=== PATIENT | female | born 1995 | race Caucasian/White ===

== ENCOUNTER 2018-11-04 11:56 | Inpatient (IN) | payer MEDICAID ==
[~2018-11-04 11:56] MED LIST: Bupivacaine 0.25% 10 ML SDV ONE
[2018-11-04] MEDS ORDERED: Calcium Carbonate 500 MG Tab.Chew PO PRN (12:46)
[2018-11-04] MEDS ORDERED: Sodium Chloride 0.9% 10 ML Syringe FLUSH PRN (12:46)
[2018-11-04] MEDS ORDERED: Ondansetron 4 MG/2 ML SDV IVPUSH PRN (12:46)
[2018-11-04] MEDS ORDERED: Nalbuphine 10 MG/1 ML Vial IVPUSH PRN (12:46)
[2018-11-04] MEDS ORDERED: Oxytocin/Lactated Ringers 10 UNIT/1,000 ML BAG IV SCH ×2 (13:00)
--- NOTE | 2018-11-04 13:01 | PCM.PREANE ---
Preanesthetic Assessment - Procedure Proposed Procedure: scott - Anesthesia/Transfusion/Family Hx Anesthesia History: No Prior Anesthesia Family History of Anesthesia Reaction: No Transfusion History: No Prior Transfusion(s) - Review of Systems General: No Symptoms Pulmonary: Shortness of Breath Cardiovascular: No Symptoms, Chest Pain (feels like food is there at night) Gastrointestinal: No Symptoms Neurological: No Symptoms Other: Reports: None - Physical Assessment Vital Signs: 158/118 77 20 Height: 5 ft 8 in Weight: 113.398 kg ASA Class: 2 Mental Status: Alert & Oriented x3 Airway Class: Mallampati = 1 Dentition: Reports: Normal Dentition Thyro-Mental Finger Breadths: 3 Mouth Opening Finger Breadths: 3 ROM/Head Extension: Full Lungs: Clear to Auscultation, Normal Respiratory Effort Cardiovascular: Regular Rate, Regular Rhythm - Allergies Allergies/Adverse Reactions: Allergies Allergy/AdvReac Type Severity Reaction Status Date / Time No Known Allergies Allergy Verified 11/04/18 12:08 - Blood Blood Available: No - Acknowledgements Anesthesia Type Planned: Epidural Pt an Appropriate Candidate for the Planned Anesthesia: Yes Alternatives and Risks of Anesthesia Discussed w Pt/Guardian: Yes Pt/Guardian Understands and Agrees with Anesthesia Plan: Yes PreAnesthesia Questionnaire Cardiovascular History: Reports: None Respiratory History: Reports: None Gastrointestinal History: Reports: GERD (yucky feeling in chest) : 1 (39 2) Para: 0 Neurological History: Reports: None Oncologic (Cancer) History: Reports: None - SUBSTANCE USE Smoking Status *Q: Never Smoker Tobacco Use Within Last Twelve Months: No Second Hand Smoke Exposure: No Days Per Week of Alcohol Use: 0 Recreational Drug Use History: No - HOME MEDS Home Medications: Home Meds Ferrous Sulfate [Iron] 325 mg PO DAILY 11/04/18 [History] [id number]/Iron Fumarate/FA/DSS [ 19 Tablet] 1 each PO DAILY 11/04/18 [ History] - CURRENT (IN HOUSE) MEDS Current Meds: Current Medications Calcium Carbonate/Glycine (Tums) 1,000 mg PO Q2H PRN PRN Reason: Indigestion Lactated Ringer's (Ringers, Lactated) 1,000 mls @ 100 mls/hr IV ASDIRECTED JAMIE Oxytocin/Lactated Ringer's (Pitocin In Lr 10 Units/1,000 Ml) 10 unit in 1,000 mls @ 12 mls/hr IV TITRATE JAMIE; Protocol Oxytocin/Lactated Ringer's (Pitocin In Lr 10 Units/1,000 Ml) 10 unit in 1,000 mls @ 500 mls/hr IV .CONTINUOUS JAMIE Nalbuphine HCl (Nubain) 10 mg IVPUSH Q2H PRN PRN Reason: Pain Ondansetron HCl (Zofran) 4 mg IVPUSH Q4H PRN PRN Reason: Nausea/Vomiting Sodium Chloride (Saline Flush) 10 ml FLUSH ASDIRECTED PRN PRN Reason: Keep Vein Open
[2018-11-04] MEDS: Labetalol 100 MG Tab PO SCH ×2 (13:18→17:10)
[2018-11-04] MEDS: Lactated Ringers 1,000 ML IV SCH ×2 (13:28→17:04)
[2018-11-04] MEDS ORDERED: fentaNYL 100 MCG/2 ML SDV EPIDUR PRN (15:31)
[2018-11-04] MEDS ORDERED: Bupivacaine/fentaNYL/NS 100 ML Bag EPIDUR PRN (15:31)
[2018-11-04] MEDS ORDERED: diphenhydrAMINE 50 MG/ML SDV IVPUSH PRN (15:31)
[2018-11-04] MEDS ORDERED: ePHEDrine 50 MG/ML SDV IVPUSH PRN (15:31)
[2018-11-04] MEDS ORDERED: Labetalol 100 MG Tab PO ONE (17:14)
--- NOTE | 2018-11-04 20:26 | PCM.LDHP ---
L&D History of Present Illness - General Date of Service: 11/04/18 Admit Problem/Dx: Patient Status Order with Admit Dx/Problem 11/04/18 12:10 Patient Status [ADT] Routine Admission Diagnosis/Problem Admission Diagnosis/Problem 11/04/18 20:21 Radha is a 23-year-old 1 para 0 female admitted at 39-2/7 week IUP with an WENDI of 11/09/2018 her preeclampsia severe features. Source of Information: Patient History Limitations: Reports: No Limitations - History of Present Illness Introduction:: Radha is a 23-year-old 1 para 0 female admitted at 39-2/7 week IUP with an WENDI of 11/09/2018 her preeclampsia severe features.She was seen in clinic today and blood pressure at that time was 179/110. On multiple occasions is been repeated and has stayed in the range of 95-110 diastolic and 150-170 systolic. Laboratory testing includes increased level of uric acid, protein in her urine. She complains of a headache upon evaluation in clinic and has had significant swelling. She had a weight gain of 9.8 pounds over the last 4 days. He is admitted for induction of labor and management of her elevated blood pressures and her preeclampsia with severe features. 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 Her WENDI is set by an early ultrasound done at an outside clinic. She transferred her care to our clinic at approximately 37 weeks gestational age having received care in [place] prior to that time. Significant portions of her medical record were not transferred at the time of that initiation of care. Patient had a starting weight of 229 pounds and increased up to 249 pounds by the end of the for 29 pound weight gain. 9.8 of those pounds were however in the last 4 days of the . She reports good activity. Reports that her course has been relatively unremarkable until the present time. Now reports that she is at headache. Has had blurry vision and been unable focus well. She denies any right upper quadrant abdominal pain.Blood pressures in clinic were elevated and patient was sent to the labor and delivery unit for induction of labor for diagnosis of 39 week , preeclampsia severe features. The patient plans to breast-feed Laboratory testing and shows blood group B positive. Negative antibody screen. RPR nonreactive. Group B strep screen negative. Allergies none. Medications: 1. vitamins 1 daily 2. Ferrous sulfate 325 mg by mouth daily Past medical history: Unremarkable. Past surgical history: Unremarkable Family history: Mother is alive and well as is her father. She has many half- brothers and many half-sisters. One half sister with Down syndrome. Maternal grandmother is alive and well. Maternal grandfather is secondary to a motor vehicle accident. Paternal grandmother and paternal grandfather are both alive and well. There is no family history of cancer, bleeding or blood clotting disorders, anesthesia related issues or -related issues. Review of systems: Patient reports increased edema in her lower extremities, hands and her face. She reports headache present on the day of evaluation. She also reports vision changes in the form of blurriness of vision and inability to focus. Baby is reported to be very active. She denies any contractions. Skin: Negative Lungs: No infectious symptoms or shortness of breath Cardiovascular: No chest pain or exercise intolerance Breasts: No lumps, changes in size, pain, dimpling, discharge or axillary or supraclavicular concerns. GI: Negative : As above in history of present illness. Musculoskeletal: Negative Neurological: Negative In general the patient is edematous, overweight but pleasant female of stated age in no acute distress. Blood pressures 179/110. Weight is 249.8 with weight 4 days ago 240 pounds. heart rate is 144. Pre-gravid weight was 229 pounds. Height is 5 feet 8 inches. Prepregnancy body mass index is 28.1. Skin is warm dry without lesions. Patient is very edematous lower extremities and hands. This to the point where she has trouble closing the fingers on her hands into a fist. HEENT, neck and back within normal limits. Lungs are clear with good breath sounds in all lung maria. Cardiovascular exam shows regular and rhythm without murmurs. Breast exam is deferred Abdomen is gravid with fundal height in clinic at approximately 41 cm. Baby in vertex presentation. Genital exam per digital evaluation shows cervix to be 3 cm, 80% effaced, soft, posterior, -3 station. Extremities are with significant 1+ pitting edema in lower extremities and significant edema in her hands bilaterally. Neurological exam is normal. Specifically her deep tendon reflexes are less than 1/4 in bilateral lower extremities. Pain Score: 10 - Related Data Allergies/Adverse Reactions: Allergies Allergy/AdvReac Type Severity Reaction Status Date / Time No Known Allergies Allergy Verified 11/04/18 12:08 Home Medications: Home Meds Calcium Carbonate [Calcium] 500 mg PO DAILY 11/04/18 [History] Mae Weed/Linoleic/Gamoleni [Evening Weed 1,000 mg Sftg] 1,000 mg PO DAILY 11/04/18 [History] Ferrous Sulfate [Iron] 325 mg PO DAILY 11/04/18 [History] GQJ644/Iron Fumarate/FA/DSS [ 19 Tablet] 1 each PO DAILY 11/04/18 [ History] Past Medical History Cardiovascular History: Reports: None Respiratory History: Reports: None Gastrointestinal History: Reports: GERD [employer]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: Neurological History: Reports: None Endocrine/Metabolic History: Reports: Obesity/BMI 30+ Oncologic (Cancer) History: Reports: None Social & Family History - Family History Family Medical History: Noncontributory - Tobacco Use Smoking Status *Q: Never Smoker Second Hand Smoke Exposure: No - Alcohol Use Days Per Week of Alcohol Use: 0 - Recreational Drug Use Recreational Drug Use: No H&P Review of Systems - Review of Systems: Review Of Systems: See Below L&D Exam - Exam Exam: See Below - Vital Signs Vital Signs: Last Vital Signs Temp 36.6 C 11/04/18 12:30 Pulse 85 11/04/18 17:18 Resp 16 11/04/18 12:30 BP 146/100 H 11/04/18 17:18 Pulse Ox Weight: 113.307 kg - Patient Data Lab Results Last 24 hrs: Laboratory Results - last 24 hr 11/04/18 11/04/18 11/04/18 Range/Units 13:00 13:00 13:00 WBC 11.65 H (3.98-10.04) K/mm3 RBC 4.85 (3.98-5.22) M/mm3 Hgb 14.1 (11.2-15.7) gm/L Hct 41.1 (34.1-44.9) % MCV 84.7 (79.4-94.8) fl MCH 29.1 (25.6-32.2) pg MCHC 34.3 (32.2-35.5) g/dl RDW Std Deviation 40.9 (36.4-46.3) fL Plt Count 121 L (182-369) K/mm3 MPV 12.0 (9.4-12.3) fl Neut % (Auto) 79.1 H (34.0-71.1) % Lymph % (Auto) 12.7 L (19.3-51.7) % [place] % (Auto) 6.7 (4.7-12.5) % Eos % (Auto) 0.4 L (0.7-5.8) Baso % (Auto) 0.3 (0.1-1.2) % Neut # (Auto) 9.22 H (1.56-6.13) K/mm3 Lymph # (Auto) 1.48 (1.18-3.74) K/mm3 [place] # (Auto) 0.78 H (0.24-0.36) K/mm3 Eos # (Auto) 0.05 (0.04-0.36) K/mm3 Baso # (Auto) 0.03 (0.01-0.08) K/mm3 BUN 21 H (7-18) mg/dL Creatinine 0.9 (0.55-1.02) mg/dL Est Cr Clr Drug Dosing 98.91 mL/min Estimated GFR (MDRD) > 60 (>60) mL/min Uric Acid 6.8 H (2.6-6.0) mg/dL AST 27 (15-37) U/L ALT 30 (14-59) U/L Lactate Dehydrogenase 270 H (81-234) U/L Urine Color (Yellow) Urine Appearance (Clear) Urine pH (5.0-8.0) Ur Specific [place] (1.005-1.030) Urine Protein (Negative) Urine Glucose (UA) (Negative) Urine Ketones (Negative) Urine Occult Blood (Negative) Urine Nitrite (Negative) Urine Bilirubin (Negative) Urine Urobilinogen (0.2-1.0) Ur Leukocyte Esterase (Negative) Urine RBC (0-5) /hpf Urine WBC (0-5) /hpf Ur Squamous Epith Cells (0-5) /hpf Urine Bacteria (FEW) /hpf Urine Mucus (FEW) /hpf Urine Opiates Screen (IBWJFL=848) Ur Buprenorphine Scrn (CUTOFF=10) Ur Oxycodone Screen (PWB0PW=883) Urine Methadone Screen (CEARUP=839) Ur Propoxyphene Screen (MVIUIW=751) Ur Barbiturates Screen (NFBIDR=305) Ur Tricyclics Screen (PJYMDJ=543) Ur Phencyclidine Scrn (CUTOFF=25) Ur Amphetamine Screen (QCXELA=104) U Methamphetamines Scrn (ELFJSE=658) U Benzodiazepines Scrn (NPHRTY=164) U Cocaine Metab Screen (NIYPJF=763) U Marijuana (THC) Screen (CUTOFF=50) RPR Non-reactive (NONREACTIVE) 11/04/18 11/04/18 Range/Units 15:05 15:05 WBC (3.98-10.04) K/mm3 RBC (3.98-5.22) M/mm3 Hgb (11.2-15.7) gm/L Hct (34.1-44.9) % MCV (79.4-94.8) fl MCH (25.6-32.2) pg MCHC (32.2-35.5) g/dl RDW Std Deviation (36.4-46.3) fL Plt Count (182-369) K/mm3 MPV (9.4-12.3) fl Neut % (Auto) (34.0-71.1) % Lymph % (Auto) (19.3-51.7) % [place] % (Auto) (4.7-12.5) % Eos % (Auto) (0.7-5.8) Baso % (Auto) (0.1-1.2) % Neut # (Auto) (1.56-6.13) K/mm3 Lymph # (Auto) (1.18-3.74) K/mm3 [place] # (Auto) (0.24-0.36) K/mm3 Eos # (Auto) (0.04-0.36) K/mm3 Baso # (Auto) (0.01-0.08) K/mm3 BUN (7-18) mg/dL Creatinine (0.55-1.02) mg/dL Est Cr Clr Drug Dosing mL/min Estimated GFR (MDRD) (>60) mL/min Uric Acid (2.6-6.0) mg/dL AST (15-37) U/L ALT (14-59) U/L Lactate Dehydrogenase (81-234) U/L Urine Color Yellow (Yellow) Urine Appearance Slt cloudy H (Clear) Urine pH 6.0 (5.0-8.0) Ur Specific [place] > or = 1.030 (1.005-1.030) Urine Protein 3+ H (Negative) Urine Glucose (UA) Negative (Negative) Urine Ketones Trace H (Negative) Urine Occult Blood 2+ H (Negative) Urine Nitrite Negative (Negative) Urine Bilirubin 1+ H (Negative) Urine Urobilinogen 0.2 (0.2-1.0) Ur Leukocyte Esterase Negative (Negative) Urine RBC 20-30 H (0-5) /hpf Urine WBC 0-5 (0-5) /hpf Ur Squamous Epith Cells 0-5 (0-5) /hpf Urine Bacteria Few (FEW) /hpf Urine Mucus Few (FEW) /hpf Urine Opiates Screen Negative (LDVOST=541) Ur Buprenorphine Scrn Negative (CUTOFF=10) Ur Oxycodone Screen Negative (LYM1GQ=976) Urine Methadone Screen Negative (APFHFS=771) Ur Propoxyphene Screen Negative (QBZFTW=526) Ur Barbiturates Screen Negative (XHWSCP=653) Ur Tricyclics Screen Negative (WEZRXV=292) Ur Phencyclidine Scrn Negative (CUTOFF=25) Ur Amphetamine Screen Negative (WUEEJK=110) U Methamphetamines Scrn Negative (CIBELA=613) U Benzodiazepines Scrn Negative (RGNCFR=966) U Cocaine Metab Screen Negative (QBFCED=496) U Marijuana (THC) Screen Negative (CUTOFF=50) RPR (NONREACTIVE) Result Diagrams: 11/04/18 13:00 11/04/18 13:00 Problem List Initiated/Reviewed/Updated: Yes Orders Last 24hrs: Active Orders 24 hr Category Date Time Status Patient Status [ADT] Routine ADT 11/04/18 12:10 Active Activity as Tolerated [RC] PFP Care 11/04/18 12:47 Active Communication Order [RC] ASDIRECTED Care 11/04/18 12:47 Active Notify Provider [RC] ASDIRECTED Care 11/04/18 15:31 Active Notify Provider [RC] PFP Care 11/04/18 12:47 Active Notify Provider [RC] PRN Care 11/04/18 12:47 Active Peripheral IV Care [RC] Q2HR Care 11/04/18 12:47 Active Regular Diet [DIET] Diet 11/04/18 Dinner Active BLOOD BANK HOLD SPECIMEN [BBK] Stat Lab 11/04/18 12:46 Ordered MEASLES/MUMPS/RUBELLA IMMUNITY [REF] Routine Lab 11/04/18 13:00 Received Bupivacaine/fentaNYL/NS [fentaNYL/Bupivacaine/NS 2 MCG- Med 11/04/18 15:31 Active 0.125% 100 ML] 100 ml EPIDUR ASDIRECTED PRN Calcium Carbonate [Tums] Med 11/04/18 12:46 Active 1,000 mg PO Q2H PRN Labetalol [Normodyne] Med 11/04/18 13:15 Active 200 mg PO Q4H Labetalol [Normodyne] Med 11/04/18 21:15 Active 400 mg PO BID Lactated Ringers [Ringers, Lactated] 1,000 ml Med 11/04/18 13:00 Active IV ASDIRECTED Nalbuphine [Nubain] Med 11/04/18 12:46 Active 10 mg IVPUSH Q2H PRN Ondansetron [Zofran] Med 11/04/18 12:46 Active 4 mg IVPUSH Q4H PRN Oxytocin/Lactated Ringers [Pitocin in LR 10 Units/1,000 Med 11/04/18 13:00 Active ML] 10 unit in 1,000 ml IV .CONTINUOUS Oxytocin/Lactated Ringers [Pitocin in LR 10 Units/1,000 Med 11/04/18 13:00 Active ML] 10 unit in 1,000 ml IV TITRATE Sodium Chloride 0.9% [Saline Flush] Med 11/04/18 12:46 Active 10 ml FLUSH ASDIRECTED PRN diphenhydrAMINE [Benadryl] Med 11/04/18 15:31 Active 25 mg IVPUSH Q6H PRN ePHEDrine [ePHEDrine sulfate] Med 11/04/18 15:31 Active 5 mg IVPUSH ASDIRECTED PRN fentaNYL [Sublimaze] Med 11/04/18 15:31 Active 100 mcg EPIDUR Q3H PRN Electronic Heart Tones Ext w TOCO [WOMSER] Ot 11/04/18 12:47 Ordered Routine Electronic Heart Tones Internal [WOMSER] Per Unit Ot 11/04/18 12:47 Ordered Routine PIH Panel [OM.PC] Stat Ot 11/04/18 12:10 Ordered Peripheral IV Insertion Adult [OM.PC] Routine Ot 11/04/18 12:47 Ordered Resuscitation Status Routine Resus Stat 11/04/18 12:10 Ordered Medication Orders Calcium Carbonate/Glycine (Tums) 1,000 mg PO Q2H PRN PRN Reason: Indigestion Diphenhydramine HCl (Benadryl) 25 mg IVPUSH Q6H PRN PRN Reason: pruritis Ephedrine Sulfate (Ephedrine Sulfate) 5 mg IVPUSH ASDIRECTED PRN PRN Reason: Hypotension Fentanyl (Sublimaze) 100 mcg EPIDUR Q3H PRN PRN Reason: Pain Last Admin: 11/04/18 16:58 Dose: 100 mcg Fentanyl/Bupivacaine HCl (Fentanyl/Bupivacaine/Ns 2 Mcg-0.125% 100 Ml) 100 ml EPIDUR ASDIRECTED PRN PRN Reason: Pain Last Admin: 11/04/18 16:58 Dose: 100 ml Lactated Ringer's (Ringers, Lactated) 1,000 mls @ 100 mls/hr IV ASDIRECTED JAMIE Last Admin: 11/04/18 17:04 Dose: 100 mls/hr Infusion: 11/04/18 17:04 Dose: 100 mls/hr Admin: 11/04/18 13:28 Dose: 100 mls/hr Oxytocin/Lactated Ringer's (Pitocin In Lr 10 Units/1,000 Ml) 10 unit in 1,000 mls @ 12 mls/hr IV TITRATE JAMIE; Protocol Last Titration: 11/04/18 17:12 Dose: 12 munits/min, 72 mls/hr Titration: 11/04/18 16:07 Dose: 10 munits/min, 60 mls/hr Titration: 11/04/18 15:25 Dose: 8 munits/min, 48 mls/hr Titration: 11/04/18 14:54 Dose: 6 munits/min, 36 mls/hr Titration: 11/04/18 14:14 Dose: 4 munits/min, 24 mls/hr Admin: 11/04/18 13:28 Dose: 2 munits/min, 12 mls/hr Oxytocin/Lactated Ringer's (Pitocin In Lr 10 Units/1,000 Ml) 10 unit in 1,000 mls @ 500 mls/hr IV .CONTINUOUS JAMIE Labetalol HCl (Normodyne) 200 mg PO Q4H JAMIE Last Admin: 11/04/18 17:10 Dose: 200 mg Admin: 11/04/18 13:18 Dose: 200 mg Labetalol HCl (Normodyne) 400 mg PO BID JAMIE Nalbuphine HCl (Nubain) 10 mg IVPUSH Q2H PRN PRN Reason: Pain Ondansetron HCl (Zofran) 4 mg IVPUSH Q4H PRN PRN Reason: Nausea/Vomiting Sodium Chloride (Saline Flush) 10 ml FLUSH ASDIRECTED PRN PRN Reason: Keep Vein Open Assessment/Plan Comment:: 1. 39-2/7 week intrauterine , preeclampsia severe features-per clinical and laboratory evaluation 2. Group B strep screen negative 3. Patient plans to breast-feed 4. Patient desires epidural in labor and delivery 5. Thrombocytopenia possibly secondary to preeclampsia 6. RPR nonreactive. Plan: 1. Induction of labor with Pitocin and artificial rupture membranes 2. Monitor blood pressures very closely will initiate labetalol orally, if no improvement noted within 30 minutes will proceed with hydralazine per the IV 3. Support breast-feeding decision 4. Obtain drug screen on urine 5. Epidural when necessary for labor analgesia. 6. If reflexes increase we'll add magnesium sulfate IV. If DTRs remained minimal will start magnesium sulfate after delivery.
[2018-11-04] MEDS ORDERED: Lidocaine 1% 50 ML MDV ONE (20:57)
[2018-11-04] MEDS ORDERED: Labetalol 100 MG Tab PO SCH (21:15)
--- NOTE | 2018-11-04 21:29 | PCM.SN ---
- Free Text/Narrative Note: Delivery note: Radha is a 23-year-old 1 now para 1001 female was admitted for medical induction of labor due to preeclampsia severe features earlier on the day of . She underwent Pitocin/artificial rupture membranes induction. Her blood pressures were managed adequately with labetalol 400 mg by mouth every 4 hours. Decision was made not to start magnesium sulfate as patient's reflexes were less than 1/4 in bilateral lower extremities. Patient had an epidural for labor analgesia. She rapidly progressed to complete cervical dilation. In the course of 20 minutes the patient pushed successfully for delivery. A small episiotomy was performed and the patient delivered a viable, davidson, male with Apgars of 3 and 9, weight of 3820 g (8 pounds 6.7 ounces), length of 21.5 inches at 2050 hrs. on 11/04/2018. Baby was placed on mom's abdomen. Cord was clamped 2 and cut by the patient's sister. Pitocin was increased to 500 mL/h to facilitate increase in uterine tone and decrease likelihood of bleeding. The placenta delivered in a Robison fashion, appeared intact and complete and was discarded per patient desire. The area of the episiotomy and the left clitoral laceration was infiltrated with lidocaine 1%10-15 mL total. The small midline episiotomy was repaired with 3-0 Monocryl. A left periclitoral laceration was found to have 1 small bleeder which was controlled with a single [id number] suture of 3-0 Monocryl. This restored anatomy and stopped bleeding. The patient plans to breast-feed. Has been blood loss was 400 mL. Condition: Good The patient will be started on magnesium sulfate because of the preeclampsia severe features. Labetalol will be continued also.
[2018-11-04] MEDS ORDERED: Benzocaine/Menthol 20%-0.5% Spray 56 GM Canister TOP PRN (21:30)
[2018-11-04] MEDS ORDERED: Lanolin 100% Cream 7 GM Tube TOP PRN (21:30)
[2018-11-04] MEDS ORDERED: Witch Hazel Medicated Pads 40/Jar TOP PRN (21:30)
[2018-11-04] MEDS ORDERED: Oxytocin/Lactated Ringers 10 UNIT/1,000 ML BAG IV ONE (21:47)
[2018-11-04] MEDS ORDERED: Magnesium Sulfate/Water 50 ML ONE ×2 (21:48→22:23)
[2018-11-04] MEDS ORDERED: Magnesium Sulfate/Water 4 GM in Premix Bag 1 BAG IV ONE (22:15)
[2018-11-04] MEDS ORDERED: Magnesium Sulfate/Water 40 GM/1,000 ML BAG IV SCH (22:15)
[2018-11-04] MEDS: Magnesium Sulfate/Water 2 GM in Premix Bag 1 BAG IV ONE ×2 (22:28→22:29)
[2018-11-04] MEDS ORDERED: Labetalol 100 MG/20 ML MDV IVPUSH SCH (22:30)
[2018-11-04] MEDS: Docusate Sodium 100 MG Cap PO PRN (22:31)
[2018-11-04] MEDS: Ibuprofen 600 MG Tab PO PRN (22:31)
[2018-11-05] MEDS ORDERED: Labetalol 100 MG Tab PO SCH
[2018-11-05] MEDS ORDERED: Ondansetron 4 MG/2 ML SDV IVPUSH PRN (00:48)
[2018-11-05] MEDS: Labetalol 100 MG Tab PO SCH ×5 (01:51→23:23)
--- NOTE | 2018-11-05 08:42 | PCM.SN ---
- Free Text/Narrative Note: day 1: Patient is doing well in the period. Minimal lochia, voiding well, ambulated without problems. Nursing without concerns. Patient is afebrile, vital signs are stable Blood pressures normalized last blood pressure 132/83. Pulse is normal. Abdomen is flat, soft, uterus is below the umbilicus and is firm and nontender. Legs are nontender. Legs still edematous. DTRs negative. Laboratory testing shows further decline platelets to 95,000. Other components of CBC and CMP essentially unchanged from admission labs. Assessment: recovery going well. Plan: Routine care. Continue Mag sulfate at present rate. Monitor levels. Monitor BP closely. Continue Labetolol at 400 mg po q 6 hours.
[2018-11-05] MEDS: Prenatal Multivitamin with Calcium/Folic Acid/Iron Tab PO SCH (08:46)
[2018-11-05] MEDS: Acetaminophen 325 MG Tab PO PRN (08:46)
[2018-11-05] MEDS ORDERED: Lactated Ringers 1,000 ML ONE (11:56)
--- NOTE | 2018-11-05 14:28 | PCM48HPAN ---
Post Anesthesia Note - EVALUATION WITHIN 48HRS OF ANESTHETIC Vital Signs in Normal Range: Yes Patient Participated in Evaluation: Yes Respiratory Function Stable: Yes Airway Patent: Yes Cardiovascular Function Stable: Yes Hydration Status Stable: Yes Pain Control Satisfactory: Yes Nausea and Vomiting Control Satisfactory: Yes Mental Status Recovered: Yes Vital Signs: Last Vital Signs Temp 36.6 C 11/05/18 12:02 Pulse 74 11/05/18 12:04 Resp 14 11/05/18 12:02 BP 140/88 11/05/18 12:04 Pulse Ox 97 11/05/18 12:02 - COMMENTS/OBSERVATIONS Free Text/Narrative:: Nakita has been up moving around today. She has noted an intermittent headache this morning. Her headache is gone at this time. She is sitting up in bed and has had breakfast. She reports feeling a liquid on her back this morning. Inspection of her back did not show any liquid at this time. She will notify her nurse if she feels liquid again or has worsening of her headache. She verbalized understanding of post dural puncture headache and is agreeable to the plan. I do not feel her symptoms corollate with a post dural puncture headache at this time.
[2018-11-05] MEDS ORDERED: Lactated Ringers 1,000 ML IV SCH (17:30)
[2018-11-05] MEDS ORDERED: Magnesium Sulfate/Water 40 GM/1,000 ML BAG IV SCH (17:30)
[2018-11-05] MEDS: Lactated Ringers 1,000 ML IV SCH (19:35)
[2018-11-05] MEDS: Ibuprofen 600 MG Tab PO PRN (23:54)
[2018-11-06] MEDS: Labetalol 100 MG Tab PO SCH ×4 (05:14→23:11)
--- NOTE | 2018-11-06 07:32 | PCM.SN ---
- Free Text/Narrative Note: note: Patient is doing well in the period. Minimal lochia, voiding well, ambulated without problems. Nursing without concerns. Blood pressures showed diastolics in the low 90s. Systolics are within normal limits. Intake and output have been good. Edema is less than what it was.. Patient is afebrile. Abdomen is flat, soft, uterus is below the umbilicus and is firm and nontender. Legs are nontender. Last progesterone was 4.9. Platelets 107. Increased from 95. Assessment: 1. Preeclampsia-with severe features-appears to be resolving. recovery going well. Patient continues currently on mag sulfate. 2. Thrombocytopenia improved Plan: 1. We'll begin weaning mag sulfate by 10 mL per hour every hour. 2.. . Magnesium levels. 3. Routine care. Patient be discharged home within the next 24-48 hours. 4. Continue blood pressure medication as at present.
[2018-11-06] MEDS: Prenatal Multivitamin with Calcium/Folic Acid/Iron Tab PO SCH (09:43)
[2018-11-06] MEDS: Docusate Sodium 100 MG Cap PO PRN (09:43)
[2018-11-07] MEDS: Acetaminophen 325 MG Tab PO PRN (01:04)
[2018-11-07] MEDS: Labetalol 100 MG Tab PO SCH (05:09)
--- NOTE | 2018-11-07 05:52 | PCM.DCSUM1 ---
Discharge Summary - Hospital Course Free Text/Narrative:: Radha is a 23-year-old 1 now para 1001 female who was admitted for medical induction of labor due to preeclampsia with severe features early on the day of 11/04/2018. She underwent Pitocin/artificial rupture membranes induction. Her blood pressures were managed adequately with labetalol 400 mg by mouth every 4 hours. Decision was made not to start magnesium sulfate as patient 's reflexes were less than 1/4 in bilateral lower extremities. Patient had an epidural for labor analgesia. She rapidly progressed to complete cervical dilation. In the course of 20 minutes the patient pushed successfully for delivery. A small episiotomy was performed and the patient delivered a viable, davidson, male infant with Apgars of 3 and 9, weight of 3820 g (8 pounds 6.7 ounces), length of 21.5 inches at 2050 hrs. on 11/04/2018. Baby was placed on mom's abdomen. Cord was clamped 2 and cut by the patient's sister. Pitocin was increased to 500 mL/h to facilitate increase in uterine tone and decrease likelihood of bleeding. The placenta delivered in a Robison fashion, appeared intact and complete and was discarded per patient desire. The area of the episiotomy and the left clitoral laceration was infiltrated with lidocaine 1%10-15 mL total. The small midline episiotomy was repaired with 3-0 Monocryl. A left periclitoral laceration was found to have 1 small bleeder which was controlled with a single [id number] suture of 3-0 Monocryl. This restored anatomy and stopped bleeding. The patient is breast-feeding. Has been blood loss was 400 mL. patient's blood pressures remained stable on labetalol. Dosage of labetalol was 400 mg by mouth every 6 hours. Pain was controlled with ibuprofen and /or Tylenol. Her intake and output recovered nicely. She was started on magnesium sulfate initially with a bolus of 6 g then a maintenance dose of 2 g per hour. Mag levels were obtained and slowly profound increase over the course of the next 12-18 hours at which time the rate was slow to 30 mL an hour having initially been 50 mL or 2 g an hour. With this her blood magnesium levels were maintained in a therapeutic range. Deep tendon reflexes never increased more than 1/4 in bilateral lower extremities. She is feeling fine at this time and desires discharge home. Baby is doing well. She is nursing well, has minimal lochia and is voiding without concerns. Her bilateral lower extremity edema has improved significantly. Diagnosis: Stroke: No - Discharge Data Discharge Date: 11/07/18 Discharge Disposition: Home, Self-Care 01 Condition: Good - Patient Instructions Diet: Regular Diet as Tolerated (Nursing diet and increase calories and calcium as directed.) Activity: As Tolerated (No intercourse or tampons until bleeding resolves) Driving: Do Not Drive (2 days.) Showering/Bathing: May Shower (May take a bath) Notify Provider of: Fever, Increased Pain, Swelling and Redness, Nausea and/or Vomiting (Also headaches, vision changes, right upper quadrant pain or seizure activity.) - Discharge Plan Home Medications: Home Meds Calcium Carbonate [Calcium] 500 mg PO DAILY 11/04/18 [History] Mae [place]/Linoleic/Gamoleni [[place]ing [place] 1,000 mg Sftg] 1,000 mg PO DAILY 11/04/18 [History] Ferrous Sulfate [Iron] 325 mg PO DAILY 11/04/18 [History] [id number]/Iron Fumarate/FA/DSS [ 19 Tablet] 1 each PO DAILY 11/04/18 [ History] Acetaminophen [Tylenol] 650 mg PO Q4H PRN tablet 11/07/18 [Rx] Ibuprofen [Motrin] 600 mg PO Q4H PRN tablet 11/07/18 [Rx] Labetalol [Normodyne] 400 mg PO Q6H tablet 11/07/18 [Rx] Vit with Ca/FA/Iron [ Plus Iron] 1 each PO DAILY tablet [Rx] Referrals: Randy Lua MD [Primary Care Provider] - (Return to clinic[facility]. [facility]1 week for blood pressure evaluation.) - Discharge Summary/Plan Comment DC Time >30 min.: No Discharge Summary/Plan Comment: Discharge instructions: 1. Discharge home 2. Diet, activity and follow-up discussed with patient. Recommend nursing diet with increased calories and calcium. 3. Precautions given concern increased pain, bleeding, temperature, signs/ symptoms of DVT/PE or preeclampsia. 4. Medications per home medication was printed, discussed with and given to the patient. [facility] Diagnosis: 1. Preeclampsia with severe features 2. Term -delivered Condition: Good - Patient Data Vitals - Most Recent: Last Vital Signs Temp 36.2 C 11/07/18 04:00 Pulse 66 11/07/18 05:09 Resp 16 11/07/18 04:00 BP 139/62 11/07/18 05:09 Pulse Ox 97 11/07/18 04:00 Weight - Most Recent: 110.722 kg I&O - Last 24 hours: Intake & Output 11/06/18 11/06/18 11/07/18 14:59 22:59 06:59 Intake Total 275 380 Balance 275 380 Lab Results - Last 24 hrs: Laboratory Results - last 24 hr 11/06/18 Range/Units 10:03 Magnesium 4.8 H (1.8-2.4) mg/dl Med Orders - Current: Current Medications Acetaminophen (Tylenol) 650 mg PO Q4H PRN PRN Reason: mild pain or fever Last Admin: 11/07/18 01:04 Dose: 650 mg Benzocaine/Menthol (Dermoplast Pain Relief [place]) 0 gm TOP ASDIRECTED PRN PRN Reason: Perineal Comfort Measure Last Admin: 11/04/18 22:29 Dose: 2 can Docusate Sodium (Colace) 100 mg PO BID PRN PRN Reason: Constipation Last Admin: 11/06/18 09:43 Dose: 100 mg Emollient Ointment (Lansinoh Hpa) 0 gm TOP ASDIRECTED PRN PRN Reason: Sore Nipples Last Admin: 11/04/18 22:30 Dose: 1 tube Ibuprofen (Motrin) 600 mg PO Q4H PRN PRN Reason: Mild pain or fever Last Admin: 11/05/18 23:54 Dose: 600 mg Labetalol HCl (Normodyne) 400 mg PO Q6H JAMIE Last Admin: 11/07/18 05:09 Dose: 400 mg Ondansetron HCl (Zofran) 4 mg IVPUSH Q4H PRN PRN Reason: Nausea Prenat Multivit/[place]/Iron/Folic Ac ( Plus Iron) 1 each PO DAILY JAMIE Last Admin: 11/06/18 09:43 Dose: 1 each Witch Elena (Tucks) 1 pad TOP ASDIRECTED PRN PRN Reason: Pain Last Admin: 11/04/18 22:30 Dose: 1 can Discontinued Medications Bupivacaine HCl (Sensorcaine-Mpf 0.25%) 10 ml .ROUTE .STK-MED ONE Stop: 11/04/18 00:01 Calcium Carbonate/Glycine (Tums) 1,000 mg PO Q2H PRN PRN Reason: Indigestion Diphenhydramine HCl (Benadryl) 25 mg IVPUSH Q6H PRN PRN Reason: pruritis Ephedrine Sulfate (Ephedrine Sulfate) 5 mg IVPUSH ASDIRECTED PRN PRN Reason: Hypotension Fentanyl (Sublimaze) 100 mcg EPIDUR Q3H PRN PRN Reason: Pain Last Admin: 11/04/18 16:58 Dose: 100 mcg Fentanyl/Bupivacaine HCl (Fentanyl/Bupivacaine/Ns 2 Mcg-0.125% 100 Ml) 100 ml EPIDUR ASDIRECTED PRN PRN Reason: Pain Last Admin: 11/04/18 16:58 Dose: 100 ml Lactated Ringer's (Ringers, Lactated) 1,000 mls @ 100 mls/hr IV ASDIRECTED JAMIE Last Admin: 11/05/18 19:35 Dose: 100 mls/hr Oxytocin/Lactated Ringer's (Pitocin In Lr 10 Units/1,000 Ml) 10 unit in 1,000 mls @ 12 mls/hr IV TITRATE JAMIE; Protocol Last Titration: 11/04/18 17:12 Dose: 12 munits/min, 72 mls/hr Oxytocin/Lactated Ringer's (Pitocin In Lr 10 Units/1,000 Ml) 10 unit in 1,000 mls @ 500 mls/hr IV .CONTINUOUS JAMIE Magnesium Sulfate (Magnesium Sulfate In Water Premix) 40 gm in 1,000 mls @ 50 mls/hr IV ASDIRECTED JAMIE Last Admin: 11/04/18 22:45 Dose: 50 mls/hr Oxytocin/Lactated Ringer's (Pitocin In Lr 10 Units/1,000 Ml) Confirm Administered Dose 10 unit in 1,000 mls @ as directed IV .STK-MED ONE Stop: 11/04/18 21:48 Last Admin: 11/04/18 21:30 Dose: 500 mls/hr Magnesium Sulfate 4 gm/ Premix 50 mls @ 150 mls/hr IV ONETIME ONE Stop: 11/04/18 22:34 Last Admin: 11/05/18 01:49 Dose: Not Given Magnesium Sulfate 2 gm/ Premix 50 mls @ 300 mls/hr IV ONETIME ONE Stop: 11/04/18 22:33 Last Admin: 11/04/18 22:29 Dose: 300 mls/hr Magnesium Sulfate (Magnesium Sulfate In Water Premix) Confirm Administered Dose 50 mls @ as directed .ROUTE .[facility] ONE Stop: 11/04/18 22:24 Last Admin: 11/05/18 07:52 Dose: Not Given Lactated Ringer's (Ringers, Lactated) Confirm Administered Dose 1,000 mls @ as directed .ROUTE .[facility] ONE Stop: 11/05/18 11:57 Last Admin: 11/05/18 19:37 Dose: Not Given Magnesium Sulfate (Magnesium Sulfate In Water Premix) 40 gm in 1,000 mls @ 30 mls/hr IV ASDIRECTED [facility] Last Admin: 11/05/18 19:34 Dose: 30 mls/hr Lactated Ringer's (Ringers, Lactated) 1,000 mls @ 25 mls/hr IV ASDIRECTED [facility] Last Admin: 11/05/18 19:36 Dose: 25 mls/hr Labetalol HCl (Normodyne) 200 mg PO Q4H [facility] Last Admin: 11/05/18 01:51 Dose: Not Given Labetalol HCl (Normodyne) 200 mg PO ONETIME ONE Stop: 11/04/18 17:15 Last Admin: 11/04/18 17:18 Dose: 200 mg Labetalol HCl (Normodyne) 400 mg PO BID [facility] Labetalol HCl (Normodyne) 400 mg PO Q6HR [facility] Last Admin: 11/04/18 23:05 Dose: 400 mg Lidocaine HCl (Xylocaine 1%) Confirm Administered Dose 50 ml .ROUTE .[facility] ONE Stop: 11/04/18 20:58 Last Admin: 11/04/18 21:05 Dose: 50 ml Nalbuphine HCl (Nubain) 10 mg IVPUSH Q2H PRN PRN Reason: Pain Ondansetron HCl (Zofran) 4 mg IVPUSH Q4H PRN PRN Reason: Nausea/Vomiting Sodium Chloride (Saline Flush) 10 ml FLUSH ASDIRECTED PRN PRN Reason: Keep Vein Open
== END 2018-11-07 10:05 | disposition home or self-care (01) | DRG 806 ==
LOC: JD.OBCHECK 11:56 → JD.OB 12:01 → JD.OBCHECK 12:10 → OBSVTOIN 20:50 → JD.OB 20:51
PROVIDERS: ADMIT Obstetrics & Gynecology; ATTEND Obstetrics & Gynecology
PROC: 10907ZC Drainage of Amniotic Fluid, Therapeutic from Products of Conception, Via Natural or Artificial Opening (ICD-10-PCS; principal; 2018-11-04)
PROC: 10E0XZZ Delivery of Products of Conception, External Approach (ICD-10-PCS; 2018-11-04)
PROC: 0W8NXZZ Division of Female Perineum, External Approach (ICD-10-PCS; 2018-11-04)
PROC: 0HQ9XZZ Repair Perineum Skin, External Approach (ICD-10-PCS; 2018-11-04)
DX: O14.14 Severe pre-eclampsia complicating childbirth (principal); O99.12 Other diseases of the blood and blood-forming organs and certain disorders involving the immune mechanism complicating childbirth; Z37.0 Single live birth; Z3A.39 39 weeks gestation of pregnancy; O99.62 Diseases of the digestive system complicating childbirth; O99.214 Obesity complicating childbirth; K21.9 Gastro-esophageal reflux disease without esophagitis; E66.9 Obesity, unspecified; D69.6 Thrombocytopenia, unspecified; O71.89 Other specified obstetric trauma
CPT/HCPCS: 01967; 36415; 51702; 59025; 59409; 80053; 80306; 81001; 82565; 83615; 83735; 84450; 84460; 84520; 84550; 85025; 85027; 86592; 86735; 86762; 86765; A9270-GY; J2001; J2590; J3010; J3475; J3490; J7120